=== PATIENT | male | born 1965 | race Caucasian/White ===

== ENCOUNTER 2022-11-04 17:59 | Inpatient (IN) | payer OTHER ==
[~2022-11-04] VITALS: Ht 170.2 cm; Wt 62.7 kg
[~2022-11-04 17:59] MED LIST: ACET500; HYDACE5 PO; IBUP400; META400 PO; NAPR550 PO; PARO10; PROM25 PO; ZOLP10
[2022-11-04 18:50] LABS: BASOPHILS ABSOLUTE AUTO 0.07 K/mm3 (0.00-0.23); BASOPHILS PERCENT AUTO 1 % (0-2); EOSINOPHILS PERCENT AUTO 0 % (0-6); Hematocrit 45.8 % (37.0-53.0); IMMATURE GRAN ABSOLUTE AUTO 0.02 K/mm3 (0.00-0.10); IMMATURE GRAN PERCENT AUTO 0 % (0-1); LYMPHOCYTES ABSOLUTE AUTO 2.02 K/mm3 (0.84-5.20); LYMPHOCYTES PERCENT AUTO 22 % (21-46); MONOCYTES ABSOLUTE AUTO 0.34 K/mm3 (0.16-1.47); MONOCYTES PERCENT AUTO 4 % (4-13); Mean Corpuscular HGB 26.6 pg (26.0-34.0); Mean Corpuscular HGB Conc 32.8 g/dL (31.5-36.5); Mean Corpuscular Volume 81 fL (80-100); NEUTROPHILS ABSOLUTE AUTO 6.66 K/mm3 (1.96-9.15); NEUTROPHILS PERCENT AUTO 73 % (41-73); Platelet Count 364 K/mm3 (150-400); RDW Coefficient Variation 15.5 % (11.7-14.2); Red Blood Cell Count 5.64 M/mm3 (4.30-5.90); White Blood Cell Count 9.11 K/mm3 (4.00-11.30)
[2022-11-04 19:41] LABS: Albumin, Blood 4.4 g/dL (3.4-5.0); Albumin/Globulin Ratio 1.2 (0.8-1.8); Bilirubin, Total 0.5 mg/dL (0.1-1.0); Bun/Creatinine Ratio 15.4 (12.0-20.0); Calcium, Blood 8.8 mg/dL (8.5-10.1); Creatinine, Blood 1.23 mg/dL (0.60-1.20); Globulin, Blood 3.7 g/dL (2.2-4.0); Total Protein, Blood 8.1 g/dL (6.4-8.2)
[2022-11-04 21:54] LABS: Free Thyroxine 0.18 ng/dL (0.70-1.60)
[2022-11-04] MEDS ORDERED: LEVOTHYROXINE175 MC9 PO (23:02)
[2022-11-04] MEDS ORDERED: PROM25 PO (23:07)
[2022-11-04] MEDS ORDERED: ZOLP10 PO (23:07)
[2022-11-04] MEDS ORDERED: IBUP400 PO (23:07)
[2022-11-04] MEDS ORDERED: ACET500 PO (23:07)
[2022-11-05 00:05] VITALS: BP 127/92
[2022-11-05 05:20] VITALS: BP 133/95
[2022-11-05 05:48] LABS: BASOPHILS ABSOLUTE AUTO 0.06 K/mm3 (0.00-0.23); BASOPHILS PERCENT AUTO 1 % (0-2); EOSINOPHILS PERCENT AUTO 0 % (0-6); Hemoglobin 16.4 g/dL (13.5-17.5); IMMATURE GRAN ABSOLUTE AUTO 0.05 K/mm3 (0.00-0.10); IMMATURE GRAN PERCENT AUTO 1 % (0-1); LYMPHOCYTES ABSOLUTE AUTO 1.54 K/mm3 (0.84-5.20); LYMPHOCYTES PERCENT AUTO 15 % (21-46); MONOCYTES ABSOLUTE AUTO 0.26 K/mm3 (0.16-1.47); MONOCYTES PERCENT AUTO 2 % (4-13); Mean Corpuscular HGB 26.8 pg (26.0-34.0); Mean Corpuscular HGB Conc 32.8 g/dL (31.5-36.5); Mean Corpuscular Volume 82 fL (80-100); Mean Platelet Volume 10.6 fL (9.1-12.4); NEUTROPHILS ABSOLUTE AUTO 8.71 K/mm3 (1.96-9.15); NEUTROPHILS PERCENT AUTO 82 % (41-73); Platelet Count 349 K/mm3 (150-400); RDW Coefficient Variation 16.3 % (11.7-14.2); RDW Standard Deviation 46.1 fL (35.1-46.3); Red Blood Cell Count 6.12 M/mm3 (4.30-5.90); White Blood Cell Count 10.62 K/mm3 (4.00-11.30)
[2022-11-05 06:16] LABS: Albumin, Blood 3.9 g/dL (3.4-5.0); Bilirubin, Total 0.4 mg/dL (0.1-1.0); Bun/Creatinine Ratio 13.3 (12.0-20.0); Calcium, Blood 8.5 mg/dL (8.5-10.1); Creatinine, Blood 1.13 mg/dL (0.60-1.20); Potassium, Blood 3.7 mmol/L (3.5-5.5); Total Protein, Blood 7.9 g/dL (6.4-8.2)
--- NOTE | 2022-11-05 06:17 | NUR ---
PT HAS SLEPT SINCE ARRIVING FROM ED OTHER THAN FEW TIMES WHEN WOKEN BY STAFF. PT HAS NOT VOIDED AT THIS TIME, UA STILL NEEDS TO BE COLLECTED, DR NICHOLSON AWARE.
[2022-11-05 07:37] VITALS: BP 132/92
[2022-11-05 15:19] VITALS: BP 112/84
[2022-11-05 16:39] LABS: U Amphetamine Screen DETECTED; U Barbituate Screen Not Detected; U Benzodiazapine Screen Not Detected; U Buprenorphine Screen Not Detected; U Cannabinoids Screen DETECTED; U Cocaine Screen Not Detected; U Methadone Screen Not Detected; U Methamphetamine Screen DETECTED; U Opiates Screen Not Detected; U Oxycodone Screen Not Detected; U Phencyclidine Screen Not Detected; U Propoxyphene Screen Not Detected
--- NOTE | 2022-11-05 16:44 | NUR ---
PT IS A/OX3, PLEASANT AND COOPERATIVE. PT IS UP WITH AASSIST. THE PT CONTINUES TO COMPLAIN OF BLURRED VISION AND LEFT HIP PAIN. PT DECLINED TO TAKE IBUPROPHEN OR TYLENOL FOR THE PAIN. PT APPEARS TO BE BREATHING EASILY ON RA AT THIS TIME. THE PT DENIES ANY N/V. CALL LIGHT IN REACH. WILL CONTINUE TO MONITOR AND ASSESS FOR CHANGES. REQUEST FOR PT RECORDS SENT TO [facility] IN [place]. WAITNIG FOR RECORDS AT THIS TIME
[2022-11-05 19:20] VITALS: BP 139/96
[2022-11-06 02:28] VITALS: BP 116/96
[2022-11-06 07:27] VITALS: BP 113/90
--- NOTE | 2022-11-06 13:58 | NUR ---
PT DISCHARGED PT VERBALIZED UNDERSTANDING OF THE DC INSTRUCTIONS. THE PTS PRESCIPTION WAS FAXED TO [facility] REQUESTED. PT WAS UNABLE TO ATTAIN A RIDE HOME, PT WAS OFFERED ASSISTANCE FOR A [employer] RIDE HOME, HOWEVER, HE DECLINED THE ASSISTANCE A STATED THAT HE WOULD BE ABLE TOGET HOME AND JUST WANTED TO BE DISCHARGED AT THIS TIME. THE PT DECLINED A WHEELCHAIR AND AMBULATED TO THE FRONT UNASSISTED
--- NOTE | 2022-11-06 15:33 | NUR ---
SHIFT ASSESSMENT I WAS WAS PRESENT DURING THE STUDENT RN DEBBIE'S AM SHIFT ASSESSMENT ON THIS PATIENT AND AGREE WITH THE ASSESSMENT AND ELIANA DOCUMENTATION ON THIS PATIENT
== END 2022-11-06 13:50 | disposition home or self-care (01) | DRG 125 ==
LOC: ER 17:59 → MEDS 18:00 → ENPENDDIS 11-06 11:01 → MEDS 11-06 13:50
PROVIDERS: Family Medicine; Internal Medicine; Physician Assistant; ADMIT Internal Medicine
DX: H53.8 Other visual disturbances (principal); N17.9 Acute kidney failure, unspecified; E03.9 Hypothyroidism, unspecified; E06.3 Autoimmune thyroiditis; F15.10 Other stimulant abuse, uncomplicated; H04.129 Dry eye syndrome of unspecified lacrimal gland; H53.2 Diplopia; R00.1 Bradycardia, unspecified; R42 Dizziness and giddiness; H93.19 Tinnitus, unspecified ear; H53.149 Visual discomfort, unspecified; Z91.148 Patient's other noncompliance with medication regimen for other reason; Z79.899 Other long term (current) drug therapy; Z79.891 Long term (current) use of opiate analgesic
CPT/HCPCS: 36415; 70450; 80053; 83735; 84439; 84443; 85025; 85651; 86140; 93005; 93010; 96374; 96375; 99285-25; A9270; J1200; J1650; J1885; J2765; J2930; J7030; J7512

== ENCOUNTER 2022-12-12 01:47 | Emergency (ER) | payer OTHER ==
[~2022-12-12] VITALS: Ht 165.1 cm; Wt 56.7 kg
[~2022-12-12 01:47] MED LIST changes: +ACET500 PO; +IBUP400 PO; +LEVOTHYROXINE175 MC9 PO; +ZOLP10 PO
[2022-12-12 01:51] VITALS: BP 139/98
== END 2022-12-12 04:39 | disposition home or self-care (01) ==
LOC: ER 01:47
DX: S02.2XXA Fracture of nasal bones, initial encounter for closed fracture (principal); S20.212A Contusion of left front wall of thorax, initial encounter; S09.90XA Unspecified injury of head, initial encounter; H11.32 Conjunctival hemorrhage, left eye; M25.532 Pain in left wrist; M25.552 Pain in left hip; E03.9 Hypothyroidism, unspecified; Z23 Encounter for immunization; Z79.899 Other long term (current) drug therapy; Y04.8XXA Assault by other bodily force, initial encounter
CPT/HCPCS: 70450; 70486; 71045; 73110; 73502; 90714; A9270